=== PATIENT | female | born 1960 | race Caucasian/White ===

== ENCOUNTER 2021-12-22 06:50 | Day surgery (SDC) | payer OTHER ==
[~2021-12-22] VITALS: Ht 152.4 cm; Wt 73.5 kg
[2021-12-22] MEDS ORDERED: fentaNYL citrate 0.05 MG/ML VIAL ONE (09:14)
[2021-12-22] MEDS ORDERED: LIDOCAINE 2% 100 MG/5 ML UJET TP ONE (09:14)
[2021-12-22] MEDS ORDERED: fentaNYL citrate 0.05 MG/ML VIAL IVP ONE (10:15)
== END 2021-12-22 10:19 | disposition home or self-care (01) ==
LOC: MDS 06:50 → MMU 06:50 → MDS 10:19
PROVIDERS: ATTEND Internal Medicine Gastroenterology
DX: Z12.11 Encounter for screening for malignant neoplasm of colon (principal); K21.9 Gastro-esophageal reflux disease without esophagitis; E11.9 Type 2 diabetes mellitus without complications; Z20.822 Contact with and (suspected) exposure to COVID-19; Z79.82 Long term (current) use of aspirin; Z79.84 Long term (current) use of oral hypoglycemic drugs; Z79.899 Other long term (current) drug therapy
CPT/HCPCS: 45378; 87426; J3010